=== PATIENT | female | born 1945 | race American Indian/Alaskan Native ===

== ENCOUNTER 2024-03-29 17:09 | Emergency (ER) | payer MEDICAID, OTHER ==
[2024-03-28] MEDS: ACETAMINOPHEN 500MG TABLET PO ONE (23:00)
[~2024-03-29] VITALS: Ht 162.6 cm; Wt 70.0 kg
[2024-03-29 17:17] VITALS: O2SAT 98
[2024-03-30] VITALS: BP 123/76; PULSE 95; RESP 18; TEMP 36.78072; O2SAT 98
[2024-03-30] MEDS ORDERED: ACET-2708 MT (00:09)
== END 2024-03-30 00:11 | disposition home or self-care (01) ==
LOC: ER 17:09
DX: S39.012A Strain of muscle, fascia and tendon of lower back, initial encounter (principal); S20.219A Contusion of unspecified front wall of thorax, initial encounter; S16.1XXA Strain of muscle, fascia and tendon at neck level, initial encounter; E11.9 Type 2 diabetes mellitus without complications; X58.XXXA Exposure to other specified factors, initial encounter; Y93.89 Activity, other specified; Y92.89 Other specified places as the place of occurrence of the external cause; Y99.8 Other external cause status
CPT/HCPCS: 71045; 99284